=== PATIENT | female | born 1940 | race Caucasian/White ===

== ENCOUNTER → 2017-01-02 | Outpatient (CLI) | payer MEDICARE ==
--- NOTE | 2017-01-02 10:22 | RAD ---
EXAM DESCRIPTION: Pelvis CLINICAL HISTORY: PAIN IN LEFT HIP COMPARISON: None. TECHNIQUE: AP pelvis FINDINGS: Mild degenerative changes are observed in the lower lumbar spine and pubic symphysis. The pelvis is intact. No fracturing is detected. The proximal femurs are unremarkable. IMPRESSION: Normal pelvis for age. Electronically signed by: Jared Luo MD 01/02/2017 10:21 AM CDT
--- NOTE | 2017-01-02 10:23 | RAD ---
EXAM DESCRIPTION: Knee,Left Complete CLINICAL HISTORY: 76 years Female, PAIN IN LEFT KNEE IMPRESSION: Four views of the left knee reveals joint space loss in the medial compartment without osteophyte formation. The lateral compartment is unremarkable. There is joint space loss of the lateral joint space of the patellofemoral joint. These findings are compatible with degenerative change. No evidence of a fracture of the left knee. Small joint effusion noted. No osseous lesion noted. Electronically signed by: Waylon So MD 01/02/2017 10:22 AM CDT
== END | disposition home or self-care (01) ==
LOC: RAD 07:46
PROVIDERS: ATTEND Orthopaedic Surgery
DX: M25.562 Pain in left knee (principal); M25.552 Pain in left hip